=== PATIENT | male | born 1980 ===

== ENCOUNTER 2023-07-30 21:38 | Outpatient (REF) | payer BC, SELFPAY ==
[2023-07-31 18:29] LABS: Hepatitis B Surface Ag Negative (Negative)
[2023-07-31 18:56] LABS: HIV-1/2 Ag & Ab Screen Negative (Negative)
[2023-07-31 19:01] LABS: Hepatitis C Ab w Rflx HCV PCR Negative (Negative)
[2023-08-01 11:12] LABS: Syphilis Serology (RPR) Negative (Negative)
[2023-08-01 13:34] LABS: Chlamydia Result Negative (Negative); GC Result Negative (Negative)
[2023-08-02 15:58] LABS: Source Nasal/Nares
[2023-08-02 16:33] LABS: COVID-19 PCR Negative (Negative)
== END 2023-07-30 21:39 | disposition home or self-care (01) ==
LOC: LBN 21:38
PROVIDERS: Visit Provider Physician Assistant Medical
DX: Z11.3 Encounter for screening for infections with a predominantly sexual mode of transmission (principal)
CPT/HCPCS: 86803; 87340; 87389; 87491; 87591; 87635; 86592